=== PATIENT | female | born 1990 | race Asian ===

== ENCOUNTER 2024-10-25 11:59 | Inpatient (IN) | payer MEDICAID ==
[~2024-10-25] VITALS: Ht 167.6 cm; Wt 69.5 kg
--- NOTE | 2024-10-25 12:51 | Physician Documentation ---
History of Present Illness Chief Complaint: Nausea Stated Complaint: VOMITTING HPI Presents to the emergency department for complaints of nausea vomiting diarrhea times 2 days. She thinks that she has food poisoning. She reports that she has vomited and had diarrhea simultaneously accompanied by fever and cold chills. No cough or congestion at this time. No known sick contacts. Medication Reconciliation Allergies: Coded Allergies: No Known Allergies (Unverified , 10/25/24) Review of Systems ROS As stated above in the HPI, otherwise all systems are reviewed and negative. Physical Exam Vital Signs: Heart Rate: 95, Respiratory Rate: 14, BP: 121/67, Pulse Oximetry: 100, Weight: 68.900 Oxygen Flow Rate: 0 Physical Exam VITALS: Reviewed and as above. GENERAL: Alert, mild distress with vomiting HEENT: Normocephalic, atraumatic, PERRL, EOMI, dry mucosa, no erythema RESPIRATORY: Lungs clear, normal breath sounds, no respiratory distress. CHEST: No accessory muscle use, no retractions CV: Regular rate, rhythm, no edema, no murmur, No: JVD GI: Soft, non-tender,no rebound, guarding, or rigid BACK: No CVA tenderness, or swelling MUSCULOSKELETAL No deformities, no edema SKIN: Warm and dry, no rash NEURO: Oriented x4, No motor or sensory deficit PSYCH: Normal mood and affect, no agitation Progress Results/Orders Results/Orders Vital Signs 10/25/24 12:28 Pulse 95 Resp 14 B/P (MAP) 121/67 Pulse Ox 100 O2 Flow Rate 0 Medical Decision Making Findings This patient presents with nausea, vomiting & diarrhea. Differential diagnosis includes possible acute gastroenteritis. Abdominal exam without peritoneal signs. Currently euvolemic without evidence of dehydration. Doubt invasive bacteria causing diarrhea such as C diff (no recent antibiotics), shiga toxin (non bloody). No recent travel. Patient is not immunocompromised. Diarrhea is non bloody so less likely inflammatory bowel disease. No evidence of surgical abdomen or other acute medical emergency including bowel obstruction, viscus perforation, vascular catastrophe, atypical appendicitis, acute cholecystitis, UGIB, thyrotoxicosis, or diverticulitis at this time. Presentation not consistent with other acute, emergent causes of vomiting / diarrhea at this time. No indication for abdominal imagingAbdominal exam without peritoneal sign s. No evidence of acute abdomen at this time. . Presentation not consistent with other acute, emergent causes of abdominal pain at this time. Patient has a hx of alcoholism and esophagel bleeding. Adding on cardiac work-up. 1700:Diagnostic work up revealed a potassium of 2.2, mag of 1.3, anion gap of 28 and borderline abnormal EKG. 1730: Current plan is to repeat EKG, replete potassium with 40 meq of IV and 40 meq of oral potassium, replete magnesium with 2 grams and re-evaluate. A CT chest and troponin have been added on. 1745: consulted hospitalist for admission. We are waiting on results of HCG to get the CT. Hospitalist would like a call back back when all labs and imaging are back. Informed hospitalist that a cardiology consult may be needed due to c hanges in EKG. 18:07: Troponin - 62. Will repeat in 1 hour and update hospitalist. Differential Dx:Considerations: Include: AAA, -Complete, - Incomplete, -Inevitable, -Missed, -Threatened, Abruptio placentae, Angina/OK, Aortic dissection, Appendicitis, Bowel obstruction, Cholangitis, Cholelithasis, Constipation, Diverticular disease, Esophageal rupture, Esophagitis, Gastritis/PUD, Gastroenteritis, GI hemorrhage, Hernia, Hepatitis, Inflammatory BD, Ischemic bowel, Ovarian cyst/torsion, Pancreatitis, PID, Porphyria, Trauma, intraabdominal, Urinary obstruction, Urinary tract infection, Urolithiasis, Other Departure Disposition: ADMITTED INPATIENT Admitted to Inpatient Unit: yes, to hospitalist Admission Level of Care: Critcal Care Impression: Primary Impression: Hypokalemia Additional Impressions: Hypomagnesemia Gastritis Condition: Critical Referrals: NO PRIMARY CARE PROVIDER (PCP) Critical Care Note Total Time (mins): 60 Critical Care Note The very real possibility of a deterioration of this patient's condition required the highest level of my preparedness for sudden, emergent intervention. I provided critical care services, which included medication orders, frequent reevaluations of the patient's condition and response to treatment, ordering and reviewing test results, and discussing the case with various consultants. Excludes time spent performing separately billable procedures. The critical care time associated with the care of the patient was. Signature Scribe Signature: t Attestation: Scribed for Rossi Urbanp by Mumtaz An NP . 10/25/24 23:00 ROSSI URBAN Oct 25, 2024 12:51 MUMTAZ CURRIE SECTION[employer]T MOLD ASSEMBLER Oct 25, 2024 17:47
[2024-10-25 14:23] LABS: MEAN PLATELET VOLUME 8.1 FL (7.4-10.4); RED CELL DISTRIBUTION WIDTH 13.7 % (11.5-14.5)
[2024-10-25 14:37] LABS: CREATININE 0.93 MG/DL (0.40-0.90); TOTAL CARBON DIOXIDE 22.5 MMOL/L (24-32); eCRCL 78 ML/MIN; eGFR 68 ML/MIN
[2024-10-25] MEDS: ondansetron/PF 4mg/2ml inj IV ONE (15:13)
[2024-10-25] MEDS: normal saline 1000ML IV soln IVB ONE (15:13)
[2024-10-25 15:14] LABS: GIANT PLATELET FEW; PLATELET ESTIMATE NORMAL
--- NOTE | 2024-10-25 15:25 | ELECTROCARDIOGRAPH REPORT ---
[facility] Test Date: 2024-10-25 Test Time: 15:23:21 Pat Name: HODAN PFEIFFER Department: [facility]ER Patient ID: [id number] Room: [place] [address] Gender: F Hide And Skin Classer: : 1990 Requested By: TANNER URBAN Order Number: [id number] Reading MD: Dr. Boni Wills Measurements Intervals [place] Rate: 76 P: 53 OR: 130 QRS: 60 QRSD: 83 T: 63 QT: 551 QTc: 620 Interpretive Statements Sinus rhythm Paired ventricular premature complexes Consider left ventricular hypertrophy Repol abnrm suggests ischemia, diffuse leads Prolonged QT interval Electronically Signed On 10-27-2024 19:28:[address] Boni Wills Please click the below link to view image of tracing.
[2024-10-25] MEDS: Potassium Cl inj 40 MEQ in normal saline 500ml IV soln 500 ML IV ONE (15:36)
--- NOTE | 2024-10-25 16:29 | RADIOLOGY REPORT ---
CHEST RADIOGRAPH Indication: chest burning and esophageal discomfort, vomiting Technique: DI CHEST,TWO VIEWS Comparison: None FINDINGS: The cardiac silhouette is unremarkable. The lungs demonstrate no pulmonary airspace consolidation. Th e pulmonary vasculature is unremarkable. There is no pleural effusion. There is no pneumothorax. Old posterior left 8th rib fracture. IMPRESSION: No pulmonary airspace consolidation.
--- NOTE | 2024-10-25 16:58 | ELECTROCARDIOGRAPH REPORT ---
[facility] Test Date: 2024-10-25 Test Time: 16:56:38 Pat Name: HODAN PFEIFFER Department: [facility]- Patient ID: [id number] Room: [place] [address] Gender: F Student Admissions Clerk: : 1990 Requested By: TANNER URBAN Order Number: [id number] Reading MD: Dr. Boni Wills Measurements Intervals [place] Rate: 109 P: 70 [place]: 132 QRS: 62 QRSD: 85 T: 56 QT: 504 QTc: 680 Interpretive Statements Sinus tachycardia Paired ventricular premature complexes Probable left atrial enlargement Repol abnrm, severe global ischemia (LM/MVD) Electronically Signed On 10-27-2024 19:28:[address] Boni Wills Please click the below link to view image of tracing.
[2024-10-25] MEDS ORDERED: iohexol 300mg/ml 100ml inj. ONE ×2 (17:00→18:27)
[2024-10-25] MEDS: POTASSIUM CHLORIDE 20 MEQ/15 ML oral solution PO SCH (17:17)
[2024-10-25 18:00] LABS: HCG SERUM QL NEGATIVE
[2024-10-25] MEDS ORDERED: magnesium Cl slow-release 64mg tablet PO PRN (18:20)
[2024-10-25] MEDS ORDERED: magnesium sulf-water 4G/100mL 100 ML IV PRN (18:20)
[2024-10-25] MEDS ORDERED: potassium Cl 20 mEq SR tablet PO PRN (18:20)
[2024-10-25] MEDS: PERFLUTREN PROTEIN-A MICROSPHR (Optison) 0.22 MG/ML 3ML VIAL IV ONE (18:20)
[2024-10-25 18:31] LABS: URINE HCG NEGATIVE (NEG)
[2024-10-25 18:35] LABS: LEUKOCYTE ESTERASE ,URINE NEGATIVE (Neg); NITRITES, URINE NEGATIVE (Neg); OCCULT BLOOD,URINE NEGATIVE (Neg)
[2024-10-25 18:53] LABS: UA COLLECTION TYPE CLN CATCH MIDSTREAM
[2024-10-25 18:54] LABS: SQUAMOUS EPITHELIAL CELL,UR FEW /LPF (FEW)
[2024-10-25] MEDS: HEPARIN DRIP-CARDIAC**PHARMACIST-TO-DOSE IV ONE (19:00)
[2024-10-25] MEDS: magnesium sulf-water 2g/50mL 50 ML IV ONE ×2 (19:15→19:40)
[2024-10-25 19:16] LABS: ETHANOL < 10 MG/DL (<10); PRO BRAIN NATRIURETIC PEPTIDE 2230 PG/ML (0-125)
--- NOTE | 2024-10-25 19:18 | RADIOLOGY REPORT ---
CLINICAL HISTORY: chest pain, hx of esophageal bleeding TECHNIQUE: Chest CT was performed with 100 ml of omnipaque 300 administered intravenously. This exam was performed according to our departmental dose optimization program. Up-to-date CT equipment and ra diation dose reduction techniques are utilized as appropriate. WID: COMPARISON: DI CHEST,TWO VIEWS on DOS: 10/25/24 FINDINGS: Lower Neck: Hypodense right thyroid nodule measures 1.5 cm on series 2, image 4. Axilla, Mediastinum and Payton: No thoracic lymphadenopathy. Diffuse wall thickening of the esophagus. Heart and Great Vessels: Normal-sized heart without pericardial effusion. The thoracic aorta is casarez nt and normal caliber. Central pulmonary arteries are patent. There is moderate short segment calcifi ed plaque in the proximal left anterior descending coronary artery. Airway, Lungs and Pleura: Unremarkable. Upper Abdomen: Diffuse hepatic steatosis, moderate. Chest Wall and Osseous Structures: No destructive osseous lesion. There is a nonunited fracture of th e posterolateral left 8th rib. IMPRESSION: Diffuse wall thickening of the esophagus likely esophagitis. Short-segment moderate calcified plaque in the proximal left anterior descending coronary artery. Diffuse moderate hepatic steatosis.
[2024-10-25] MEDS ORDERED: heparin 10,000 units/1 ML INJ IV ONE (19:25)
[2024-10-25] MEDS ORDERED: heparin 25,000 UNIT/250ml bag 250 ML IV PRN (19:25)
--- NOTE | 2024-10-25 19:31 | HISTORY AND PHYSICAL-Residence ---
History & Physical Providers to Resident Creating Document: ALEE CONTRERAS, RES ~ History of Present Illness Primary Medical Doctor: none Reason for Admit\\Complaint: Hypokalemia History of Present Illness The patient is a 34-year-old female with past medical history of hypertension, palpitations, presented to the ED with complaints of recurrent vomiting, diarrhea since last three days. History is vague. The patient went swimming and had roommate three days ago after which he started vomiting and having diarrhea. She lost her appetite and could not keep any food down. He also complained of night sweats. She also complains of palpitations, tingling sensation in her bilateral fingertips, occasional chest pain. She also appeared anxious. But she does not take any medication for it. No complaint of abdominal pain, burning micturition, cough, difficulty breathing. History of alcohol use disorder. Hospital admission, underwent endoscopy and was found to have irritated stomach. She is on omeprazole. She was told that her "liver was not too bad". She has significantly cut her alcohol consumption down. Last drink was at the beginning of this month and was only a glass. Allergies: Coded Allergies: No Known Allergies (Unverified , 10/25/24) Past Medical History Past Medical History Hypertension, stopped taking lisinopril last month after she was told by her primary care physician Acid reflux, takes omeprazole Past Surgical History Surgical History Comment Hernia repair surgery when she was 4 years old Family history: History of CAD in both mother and father's side of family. Past Social History Social History Comment Patient lives in [place] with and 6 kids. Independent with ADLs. Follows up with primary care physician in [place]. Smokes about half pack of cigarettes every two days. Smokes marijuana. Denies any other illicit drug abuse. ROS ROS Reviewed and full. Negative except for pertinent positives in HPI. Exam Vitals: Vital Signs Date Time Temp Pulse Resp B/P (MAP) Pulse Ox O2 Delivery O2 Flow Rate FiO2 10/25/24 18:10 86 13 155/115 (128) 100 0 General: Adult female, alert and oriented, appears anxious Head: Normocephalic with an atraumatic Eyes: Pupils- 3mm, reacting to light, conjunctiva- anicteric Nose and throat: No polyps, septum- normal, no mucosal ulcers Neck: Supple, no lymphadenopathy, no carotid bruit Respiratory: No use of accessory muscles of respiration, Bilateral normal vesiscular breath sounds heard. No wheeze, rhochi or creps Cardiac: S1-S2 heard, rhythm regular, tachycardic, no gallop/murmur Abdomen: non distended, no tenderness, no organomegaly, bowel sounds - heard Extremities: no clubbing, no pedal edema, no deformities, peripheral pulses - 2+ Skin: warm and dry, no rash, no purpura Neuro: No focal deficit, gross cranial nerve exam - normal Diagnostic Data Last Recorded Lab Results: 10/25/24 1407 10/25/24 1407 Counseling Services Smoking & Tobacco Cessation: > 10 Minutes Advance Care Planning Advanced Care plannin - 30 Minutes Additional Plan A 34-year-old female with past medical history of hypertension, alcohol use disorder, acid reflux, presented to the ED with complaints of nausea, vomiting, diarrhea, palpitations. She is being admitted into the hospital for further evaluation and management. Plan: Palpitations Possible angina Possible NSTEMI vs type 2 VA Sinus tachycardia EKG shows ST depressions in leads two, three, AVF V3, V6, V5, V4. Troponins are mildly elevated 62, pending 2nd and 3rd troponins. Aspirin 325 mg p.o. Heparin drip IV ACS protocol. Metoprolol tartrate [address] King, functional analyst consulted. Awaiting recommendations. Elevated QTC 680. Discontinue Zofran and other QT prolonging medications. IV magnesium sulfate 4 g ordered. Magnesium 1.3. ProBNP 1999. Follow up with echocardiogram. Hypokalemia Likely secondary to GI losses Initiate potassium 2.2. Replace according to the protocol. Also replace magnesium. Continue telemetry monitoring. Possible gastroenteritis Continue IV fluids at 150 mL/hour ringer lactate. Stool ova and parasites. We will consider starting antibiotics tomorrow if symptoms persist. Hyperbilirubinemia Total bilirubin 3.2. Follow up with ultrasound abdomen. High anion gap metabolic acidosis Starvation ketoacidosis vs lactic acidosis Pending lactic acid. Urine ketones present. Continue IV fluids and monitor. Hypertension Continue metoprolol and lisinopril. Code Status: Full code DVT Prophylaxis: Heparin Lines/Tubes: PIV GI Prophylaxis: Protonix Nutrition: Heart healthy diet, NPO from midnight PT: Not required Prognosis: Guarded Disposition: Continue monitoring in PCU. Telemetry monitoring, heparin drip, magnesium replacement, potassium replacement, IV fluids. EKG in a.m. Alee Cotnreras MD Internal Medicine Resident PGY-1 Date of Service: Oct 25, 2024 Billing Provider: STACI SERRANO MD Common Visit Codes: [id number] INP/OBS CARE (HIGH) ALEE CONTRERAS, RES Oct 25, 2024 19:31 STACI SERRANO MD Oct 31, 2024 14:45
[2024-10-25 19:38] LABS: URINE AMPHETAMINE SCREEN NEGATIVE (Neg); URINE BARBITUATE SCREEN NEGATIVE (Neg); URINE BENZODIAZEPINES SCREEN POSITIVE (Neg); URINE CANNABINOID SCREEN POSITIVE (Neg); URINE COCAINE SCREEN NEGATIVE (Neg); URINE METHADONE SCREEN NEGATIVE (Neg); URINE OPIATE SCREEN NEGATIVE (Neg); URINE PHENCYCLIDINE SCREEN NEGATIVE (Neg)
[2024-10-25] MEDS: ringers solution, lacted 1,000 ML IV SCH (19:44)
[2024-10-25] MEDS ORDERED: metoclopramide 5 mg/ml inj IV PRN (19:55)
[2024-10-25] MEDS ORDERED: heparin, porcine 5000 units/ml vial SQ SCH (20:00)
[2024-10-25 20:01] LABS: INR 1.3 INR
[2024-10-25] MEDS: heparin 10,000 units/1 ML INJ IV ONE (20:09)
[2024-10-25] MEDS: heparin 25,000 UNIT/250ml bag 250 ML IV PRN (20:17)
[2024-10-25] MEDS: MESSAGE TO NURSING IV ONE (20:39)
[2024-10-25] MEDS: K and/or MAG REPLACEMENT MC SCH (20:41)
[2024-10-25] MEDS: pantoprazole 40mg Tablet.DR PO ONE (21:34)
[2024-10-25] MEDS: potassium Cl 40MEQ/1/2NS 520ml 520 ML IV PRN (22:42)
[2024-10-25] MEDS: magnesium sulf-water 2g/50mL 50 ML IV PRN (22:43)
[2024-10-25] MEDS ORDERED: MULT-1085 PO (23:13)
[2024-10-25] MEDS ORDERED: OMEP40CA21 PO (23:13)
[2024-10-25] MEDS ORDERED: VITA-268 PO (23:13)
[2024-10-25] MEDS ORDERED: VITD400T PO (23:13)
[2024-10-25] MEDS ORDERED: LISI20TA28 PO (23:13)
[2024-10-25 23:32] VITALS: BP 113/83; PULSE 81; RESP 20; TEMP 97; O2SAT 99
[2024-10-26] VITALS (13 sets, daily range): BP systolic 112–182; BP diastolic 66–118; PULSE 62–110; RESP 12–22; TEMP 97.2–98.2; O2SAT 94–100
[2024-10-26] MEDS ORDERED: LORA5TAB9 PO (02:10)
[2024-10-26 03:08] LABS: APTT 36 SECONDS (22-32)
[2024-10-26] MEDS: MESSAGE TO NURSING IV ONE (03:20)
[2024-10-26] MEDS: heparin 10,000 units/1 ML INJ IV PRN (03:24)
[2024-10-26 06:22] LABS: MEAN PLATELET VOLUME 8.5 FL (7.4-10.4); RED CELL DISTRIBUTION WIDTH 13.9 % (11.5-14.5)
[2024-10-26 06:36] LABS: CHOL/HDL RATIO 2.0 (0.00-4.99); CREATININE 0.79 MG/DL (0.40-0.90); LDL CHOLESTEROL 77 MG/DL (50-100); TOTAL CARBON DIOXIDE 24.5 MMOL/L (24-32); eCRCL 92 ML/MIN; eGFR 82 ML/MIN
--- NOTE | 2024-10-26 06:43 | ELECTROCARDIOGRAPH REPORT ---
[facility] Test Date: 2024-10-26 Test Time: 06:41:03 Pat Name: HODAN PFEIFFER Department: [facility] 3S Patient ID: [id number] Room: [place] [address] B Gender: F Bookkeeper: : 1990 Requested By: ELIO EASTON Order Number: [id number] Reading MD: Dr. MARY Duran Measurements Intervals [place] Rate: 73 P: 55 AL: 143 QRS: 58 QRSD: 88 T: 49 QT: 463 QTc: 511 Interpretive Statements Sinus rhythm Consider left ventricular hypertrophy Prolonged QT interval Electronically Signed On 10-26-2024 11:30:[address] MARY Duran Please click the below link to view image of tracing.
--- NOTE | 2024-10-26 07:56 | RADIOLOGY REPORT ---
INDICATION: elevated LFTs TECHNIQUE: Multiple real-time sonographic images of the abdomen were obtained. COMPARISON: None FINDINGS: The liver is homogenous in echogenicity. The liver measures 12.8 cm. No intrahepatic bilia ry ductal dilatation is noted. The gallbladder wall measures 0.3 cm and is unremarkable. No gallstones or sludge is seen. The com mon duct measures 0.3 cm and is unremarkable. No pericholecystic fluid is noted. Negative sonographi c terry's sign. The right kidney measures 10.9 cm. No hydronephrosis. The pancreas is not well visualized due to obscuration from bowel gas. The visualized portions of the IVC and aorta are grossly unremarkable. IMPRESSION: 1. Normal ultrasound of the right upper quadrant.
[2024-10-26] MEDS: potassium Cl 20 mEq SR tablet PO PRN (08:21)
[2024-10-26] MEDS: pantoprazole 40mg Tablet.DR PO SCH (08:22)
[2024-10-26] MEDS: aspirin 81mg, enteric-coated 1 TAB TABLET.DR PO SCH (08:22)
[2024-10-26] MEDS: heparin, porcine 5000 units/ml vial SQ SCH (08:23)
--- NOTE | 2024-10-26 11:40 | CARDIOLOGY REPORT ---
APPROVED REPORT EXAM: Comprehensive 2D, Doppler, and color-flow Echocardiogram. Patient Location: [facility] Blood Pressure: 116/80 mmHg Heart Rate: 89 bpm Indications Arrhythmia Troponin: 95, 99 NO CNP NO Previous ECHO 2D Dimensions LA Diam2.6 cm IVSd 1.0 (0.7-1.1cm) LVDd 4.2 cm PWd 1.1 (0.7-1.1cm) IVSs 1.2 (0.8-1.2cm) LVDs 2.9 (2.5-4.0cm) PWs 1.2 (0.8-1.2cm) LVOT Diameter 2.05 (1.8-2.4cm) LVEF(%) 57.9 (>50%) Ao Asc Diam.2.90 cm IVC 12.12 mmFS (%) 30.2 % SV 44.7 ml CO 3.8 L/min M-Mode Dimensions Left Atrium(MM) 3.25 (2.5-4.0cm) Aortic Root 3.25 (2.2-3.7cm) Aortic Cusp Exc 2.06 (1.5-2.0cm) MV EPSS 0.8 (<0.5cm) Aortic Valve AoV Peak Kip. 124.6 cm/s AoV VTI 21.9 cm AO Peak GR. 6.2 mmHg AO Mean GR. 4 mmHg LVOT VTI 16.21 cm LVOT Peak Kip. 86.1 cm/s WERNER(VTI)/BSA 2.45 cm2/m2 WERNER (VTI) 2.45 cm2 Mitral Valve MV E Velocity 78.3 cm/s MV Peak Gr. 2 mmHg MV DECEL TIME 184 ms MV A Velocity 68.6 cm/s MV PHT 64 ms E/A Ratio 1.1 MVA (PHT) 3.44 cm2 MV VMax78.0 cm/s TDI Lateral E' P. V11.48 cm/s E/Lateral E' 6.8 Tricuspid Valve TR P. Velocity 177 cm/s RAP ESTIMATE 10 mmHg TR Peak Gr. 13 mmHg RVSP 23 mmHg LEFT VENTRICLE Normal LV size and wall thickness. Overall systolic function is normal. overall LVEF is 60-65%. RIGHT VENTRICLE RV is normal size and function. ATRIA The left atrium size is normal. AORTIC VALVE Trileaflet AV appears mildly sclerotic without stenosis. Trivial insufficiency. MITRAL VALVE Mitral valve leaflets are thickened with mild annular calcification. No stenosis. Mild regurgitation. TRICUSPID VALVE The tricuspid valve is normal in structure with trace regurgitation. PULMONIC VALVE The pulmonary valve is normal in structure without insufficiency. GREAT VESSELS The aortic root is normal in size. The ascending aorta is normal in size. The IVC is normal in size a nd collapses >50% with inspiration. PERICARDIUM Normal pericardium. No effusion. Other Information Study Quality: Adequate Conclusion overall LVEF is 60-65%. Normal LV size and wall thickness. Overall systolic function is normal. RV is normal size and function. Trileaflet AV appears mildly sclerotic without stenosis. Trivial insufficiency. Mitral valve leaflets are thickened with mild annular calcification. No stenosis. Mild regurgitatio n. The tricuspid valve is normal in structure with trace regurgitation. The pulmonary valve is normal in structure without insufficiency. Normal pericardium. No effusion.
--- NOTE | 2024-10-26 12:11 | PROGRESS NOTE- Residence ---
Progress Note - Resident Providers to CC Resident Creating Document: ALEE CONTRERAS, RES ~ Antibiotic Timeout Antibiotic Ordered?: No Subjective The patient was seen and examined at bedside today. Her vomiting and diarrhea have resolved. She has heartburn, GERD symptoms. Troponins have been trending down. Objective Vital Signs Date Time Temp Pulse Resp B/P (MAP) Pulse Ox O2 Delivery O2 Flow Rate FiO2 10/26/24 10:26 97.7 92 18 119/83 (95) 99 Room Air 10/26/24 08:00 0.0 Result Diagram: 10/26/24 0556 10/26/24 0556 Adult female, alert and oriented, not in acute distress Head: Normocephalic with an atraumatic Eyes: Pupils- 3mm, reacting to light, conjunctiva- anicteric Nose and throat: No polyps, septum- normal, no mucosal ulcers Neck: Supple, no lymphadenopathy, no carotid bruit Respiratory: No use of accessory muscles of respiration, Bilateral normal vesicular breath sounds heard. No wheeze, rhochi or creps Cardiac: S1-S2 heard, rhythm regular, no gallop/murmur Abdomen: non distended, no tenderness, no organomegaly, bowel sounds - heard Extremities: no clubbing, no pedal edema, no deformities, peripheral pulses - 2+ Skin: warm and dry, no rash, no purpura Neuro: No focal deficit, gross cranial nerve exam - normal Coagulation Studies Laboratory Tests Test 10/25/24 19:36 10/26/24 02:50 Prothrombin Time 13.2 SECONDS (9.0-12.0) H INR International Normalized Ratio 1.3 INR D-Dimer 0.60 MG/L FEU (0-0.50) H D-Dimer Comment Activated Partial Thromboplast Time 36 SECONDS (22-32) H Coagulation Comments Counseling Services Smoking & Tobacco Cessation: > 10 Minutes Advance Care Planning Advanced Care plannin - 30 Minutes Assessment Assessment A 34-year-old female with past medical history of hypertension, alcohol use disorder, acid reflux, presented to the ED with complaints of nausea, vomiting, diarrhea, palpitations. She is being admitted into the hospital for further evaluation and management. Plan Plan Palpitations secondary to PVCs Type 2 RI EKG shows multiple PVCs likely secondary to hypokalemia. Dr. King made aware of the case. He thinks that the palpitations are likely from PVCs. Suggested to replace electrolytes. Troponins downtrending. Discontinued heparin drip and metoprolol. ProBNP 1999. Echocardiogram showed ejection fraction of 60-65%, no major structural abnormalities. Suspected PE Elevated troponins, sinus tachycardia, mildly elevated D-dimer 0.60. Follow up with CTA chest. Hypokalemia Hypomagnesemia Likely secondary to GI losses Potassium 3.0. Continue to replace according to the protocol. Magnesium 2.1. Continue telemetry monitoring. Possible gastroenteritis Continue IV fluids at 150 mL/hour ringer lactate. Stool ova and parasites. We will consider starting antibiotics tomorrow if symptoms persist. Hyperbilirubinemia, improving Total bilirubin trending down. Ultrasound abdomen within normal limits. High anion gap metabolic acidosis, resolved Likely starvation ketoacidosis Urine ketones present. Continue IV fluids and monitor. Hypertension Continue lisinopril 20 mg daily. GERD Esophagitis CT chest showed features suggestive of esophagitis. Continue Protonix 40 mg daily. Code Status: Full code DVT Prophylaxis: Heparin Lines/Tubes: PIV GI Prophylaxis: Protonix Nutrition: Heart healthy diet PT: Not required Prognosis: Guarded Disposition: Continue monitoring in PCU. Telemetry monitoring, potassium replacement, IV fluids. Alee Contreras MD Internal Medicine Resident PGY-2 Date of Service: Oct 26, 2024 Billing Provider: STACI SERRANO MD Common Visit Codes: [id number] INP/OBS CARE(HIGH) ALEE CONTRERAS, RES Oct 26, 2024 12:11 STACI SERRANO MD Oct 31, 2024 14:45
--- NOTE | 2024-10-26 12:25 | RADIOLOGY REPORT ---
CTA Chest with intravenous contrast INDICATION: elevated dimer, troponins, sinus tachycardia COMPARISON: CT CT CHEST W/ IV CONTRAST on DOS: 10/25/24, DI CHEST,TWO VIEWS on DOS: 10/25/24 TECHNIQUE: Multidetector spiral CTA of the chest was performed of the chest with intravenous contrast . PULMONARY ANGIOGRAPHY PROTOCOL was utilized using a bolus-tracking technique centered on the main p ulmonary artery. Axial, coronal and sagittal multiplanar and MIP reformats were performed. CONTRAST: Type of contrast: Omni 350 Contrast injected: 100 ml Radiation dose : Chest: CTDI volume is 12 mGy. Dose-length product is 497 mGy*cm The dose indicators for CT are the volume computed Tomography (CT) dose Index (CTDIvol) and the dose Length product (DLP), and are measured in units of mGy and mGy-cm, respectively. These indicators are not patient dose, but values generated from the CT scanner acquisition factors. The report includes radiation exposure data for exposures received during this examination. Findings: Pulmonary artery: No pulmonary embolism Lower neck: Normal thyroid. Lungs: No focal consolidation, pleural effusion or pneumothorax. Heart/Vascular Structures: Normal heart size. No pericardial effusion. Lymph Nodes: No adenopathy Pleura: No pleural effusion or significant pneumothorax. Musculoskeletal: Old left 8th rib fracture. Soft tissues: Normal. Upper abdomen: Diffuse hepatic steatosis with likely more focal fatty infiltration along the gallblad dawood fossa gianluca hepatis. Sludge in the gallbladder. IMPRESSION: 1. No pulmonary embolism. 2. No acute thoracic finding. 3. Diffuse hepatic steatosis with likely more focal fatty infiltration along the gallbladder fossa an d gianluca hepatis. This can be further evaluated with MRI of the abdomen with contrast. Sludge in the gallbladder. HS:Y
[2024-10-26] MEDS: ondansetron/PF 4mg/2ml inj IV PRN (13:37)
[2024-10-26] MEDS ORDERED: mag hydrox/Alum hydrox/simeth 30ml oral suspension PO PRN (17:45)
[2024-10-26] MEDS ORDERED: haloperidol lactate 5mg/ml inj IM PRN (17:55)
[2024-10-26] MEDS: calcium carbonate 500mg chew tablet PO ONE (21:06)
[2024-10-27 02:00] VITALS: BP 126/86; PULSE 113; RESP 23; TEMP 97.2; O2SAT 98
[2024-10-27 06:00] VITALS: BP 161/119; PULSE 63; RESP 16; TEMP 97.4; O2SAT 100
[2024-10-27 06:43] LABS: MEAN PLATELET VOLUME 8.2 FL (7.4-10.4); RED CELL DISTRIBUTION WIDTH 13.6 % (11.5-14.5)
[2024-10-27 07:05] LABS: CREATININE 0.64 MG/DL (0.40-0.90); TOTAL CARBON DIOXIDE 25.7 MMOL/L (24-32); eCRCL 114 ML/MIN; eGFR > 90 ML/MIN
[2024-10-27 07:44] LABS: EOSINOPHILS % (MANUAL) 2.0 % (0-6); LYMPHOCYTES % (MANUAL) 43.0 % (21-51); MONOCYTES % (MANUAL) 12.0 % (2-12); NEUTROPHILS % (MANUAL) 43.0 % (42-75)
[2024-10-27 07:45] LABS: PLATELET ESTIMATE NORMAL
[2024-10-27 08:00] VITALS: RESP 16; O2SAT 100
[2024-10-27] MEDS: mag hydrox/Alum hydrox/simeth 30ml oral suspension PO PRN (08:39)
[2024-10-27] MEDS ORDERED: thiamine tablet PO (10:11)
[2024-10-27] MEDS ORDERED: FOLI1TAB27 PO (10:11)
[2024-10-27] MEDS ORDERED: ONDA-243 PO (10:11)
[2024-10-27 11:00] VITALS: BP 127/92; PULSE 108; RESP 16; TEMP 97.3; O2SAT 98
[2024-10-27] MEDS ORDERED: AMLO5TAB16 PO (12:13)
--- NOTE | 2024-10-27 17:31 | DISCHARGE SUMMARY-Residence ---
Discharge Summary Providers to CC Resident Creating Document: ELIO EASTON, RES ~ Discharge Summary Admission Diagnosis: Hypokalemia, chest pain, dehydration Hospital Course DATE OF ADMISSION: 10/25/2024 DATE OF DISCHARGE: 10/27/2024 Imaging: X-ray chest 10/25/2024: No pulmonary airspace consolidation. CT chest 10/25/2024: Diffuse wall thickening of the esophagus likely esophagitis. Short-segment moderate calcified plaque in the proximal left anterior descending coronary artery. Diffuse moderate hepatic steatosis. Abdomen ultrasound 10/26/2024: Normal ultrasound. Echocardiogram 10/26/2024: Overall LVEF is 60-65%. Normal LV size and wall thickness. Overall systolic function is normal. RV is normal size and function. Trileaflet AV appears mildly sclerotic without stenosis. Trivial insufficiency. Mitral valve leaflets are thickened with mild annular calcification. No stenosis. Mild regurgitation. The tricuspid valve is normal in structure with trace regurgitation. The pulmonary valve is normal in structure without insufficiency. Normal pericardium. No effusion. CTA chest 10/26/2024: 1. No pulmonary embolism. 2. No acute thoracic finding. 3. Diffuse hepatic steatosis with likely more focal fatty infiltration along the gallbladder fossa and gianluca hepatis. This can be further evaluated with MRI of the abdomen with contrast. Sludge in the gallbladder. Discharge Diagnosis\\Comment: Palpitations secondary to PVCs Type 2 [place] Hypokalemia causing PVCs Hypomagnesemia Electrolyte abnormalities secondary to GI losses Possible gastroenteritis Hyperbilirubinemia, improving High anion gap metabolic acidosis, resolved - Likely starvation ketoacidosis Hypertension GERD Esophagitis Operations\\Procedures: None Consultants: Dr. King, rn dermatology Complications: None Condition on DC: Stable New Medications: Amlodipine Besylate (Amlodipine Besylate) 5 Mg Tablet 1 TAB PO DAILY for 30 Days, #30 TAB 0 Refills ONDANSETRON ODT 4mg tablet (Ondansetron Odt) 4 Mg Tab.rapdis 1 TAB PO Q6H PRN PRN for nausea/vomiting for 4 Days, #16 TAB 0 Refills Folic Acid* (Folic Acid*) Y Tab 1 MG PO DAILY for 30 Days, #30 TAB [thiamine tablet] () 100 MG TABLET 100 MG PO DAILY for 30 Days, #30 Continued Medications: Cholecalciferol (Vitamin D3) (Vitamin D) 10 Mcg (400 Unit) Tablet 1 TAB PO DAILY for 30 Days, #30 TAB 0 Refills Lisinopril (Lisinopril) 20 Mg Tablet 1 TAB PO DAILY for 30 Days, #30 TAB Loratadine (Claritin) 5 Mg Tab.rapdis 1 TAB PO PRN for 30 Days, #30 TAB 0 Refills Multivitamin (Multi Vitamin Daily) 1 Each Tablet 1 TAB PO DAILY for 30 Days, #30 TAB 0 Refills Omeprazole (Prilosec) 40 Mg Capsule 1 CAP PO DAILY for 30 Days, #30 CAP Vitamin B Complex (B Complex) 1 Each Tablet 1 TAB PO DAILY for 30 Days, #30 TAB 0 Refills Discharge Summary: History of present illness: The patient is a 34-year-old female with past medical history of hypertension, palpitations, presented to the ED with complaints of recurrent vomiting, diarrhea since last three days. History is vague. The patient went swimming and had roommate three days ago after which he started vomiting and having diarrhea. She lost her appetite and could not keep any food down. He also complained of night sweats. She also complains of palpitations, tingling sensation in her bilateral fingertips, occasional chest pain. She also appeared anxious. But she does not take any medication for it. No complaint of abdominal pain, burning micturition, cough, difficulty breathing. History of alcohol use disorder. Hospital admission, underwent endoscopy and was found to have irritated stomach. She is on omeprazole. She was told that her "liver was not too bad". She has significantly cut her alcohol consumption down. Last drink was at the beginning of this month and was only a glass. Course in the hospital: On evaluation in the ED, the patient seemed very anxious, complain of palpitations and had multiple PVCs on EKG. Troponins were mildly elevated and downtrending. On-call rn dermatology, Dr. King was consulted and he recommended replacing her electrolytes and monitoring. Her initial potassium was 2.2 and magnesium 1.3, which resolved with replacement protocol. She received 4 g of magnesium sulfate in total. Her vomiting and diarrhea have resolved. The next day, her EKG did not show any PVCs and the patient did not complain of any palpitations. She had occasional high blood pressures in the range of 180 systolic which was relieved with lorazepam. She was started on alcohol withdrawal protocol and she received thiamine and folic acid. She was extensively counseled on discontinuing alcohol and she complied with the recommendations. She also complained of severe gastritis symptoms and was recommended to follow up with a acid wash operator outpatient. On the day of discharge, the patient was stable and had no new complaints. She was eager to go home. Vital Signs Date Time Temp Pulse Resp B/P (MAP) Pulse Ox O2 Delivery O2 Flow Rate FiO2 10/27/24 11:00 97.3 108 16 127/92 (104) 98 Room Air 10/27/24 08:00 0.0 Laboratory Tests Test 10/25/24 17:37 10/25/24 17:42 10/25/24 19:36 10/25/24 20:26 Human Chorionic Gonadotropin, Qual Negative Urine Specimen Description Cln catch midstream Urine Color Dark yellow Urine Clarity Clear Urine pH 6.5 Urine Specific [place] 1.025 Urine Protein 100 mg/dl Urine Glucose (UA) Negative mg/dl Urine Ketones >=80 mg/dl Urine Occult Blood Negative Urine Nitrite Negative Urine Bilirubin Moderate Urine Urobilinogen 1.0 E.U/dL Urine Leukocyte Esterase Negative Urine RBC 0-2 /HPF Urine WBC 0-4 /HPF Urine Squamous Epithelial Cells Few /LPF Urine Transitional Epithelial Cells Few /HPF Urine Bacteria Few /HPF Urine Hyaline Casts 10-30 /LPF Urine Culture Indicated Not ind Volume Urine Centrifuged 10 ml Urine HCG, Qualitative Negative Urine Comment Urine Opiates Screen Negative Urine Methadone Screen Negative Urine Fentanyl Screen Negative Urine Barbiturates Screen Negative Urine Phencyclidine Screen Negative Urine Amphetamines Screen Negative Urine Benzodiazepines Screen Positive Urine Cocaine Screen Negative Urine Cannabinoids Screen Positive Drug Screen Comment Prothrombin Time 13.2 SECONDS INR International Normalized Ratio 1.3 INR D-Dimer 0.60 MG/L FEU D-Dimer Comment Coagulation Comments Lactic Acid Level 1.5 MMOL/L Troponin I High Sensitivity 95 ng/L 99 ng/L Troponin I High Sens Percent Delta 53 % 4 % Troponin I Hi Sens Absolute Change 33 ng/L 4 ng/L Test 10/26/24 02:50 10/26/24 05:56 10/26/24 15:40 10/26/24 18:31 Activated Partial Thromboplast Time 36 SECONDS Coagulation Comments White Blood Count 7.0 X10'3 Red Blood Count 3.83 X10'6 Hemoglobin 12.7 g/dl Hematocrit 37.4 % Mean Corpuscular Volume 97.8 FL Mean Corpuscular Hemoglobin 33.2 PG Mean Corpuscular Hemoglobin Concent 33.9 g/dL Red Cell Distribution Width 13.9 % Platelet Count 182 X10'3 Mean Platelet Volume 8.5 FL Neutrophils (%) (Auto) 69.5 % Lymphocytes (%) (Auto) 16.1 % Monocytes (%) (Auto) 13.8 % Eosinophils (%) (Auto) 0.1 % Basophils (%) (Auto) 0.5 % Neutrophils # (Auto) 4.9 X10'3 Lymphocytes # (Auto) 1.1 X10'3 Monocytes # (Auto) 1.0 X10'3 Eosinophils # (Auto) 0.0 X10'3 Basophils # (Auto) 0.0 X10'3 CBC Comment Sodium Level 135 MMOL/L Potassium Level 3.0 MMOL/L 3.5 MMOL/L Chloride Level 100 MMOL/L Carbon Dioxide Level 24.5 MMOL/L Anion Gap 11 Blood Urea Nitrogen 3 MG/DL Creatinine 0.79 MG/DL Estimated GFR/1.73 m2 82 ML/MIN BUN/Creatinine Ratio 3.8 Glucose Level 142 MG/DL Calcium Level 8.3 MG/DL Magnesium Level 2.1 MG/DL Total Bilirubin 2.6 MG/DL Aspartate Amino Transf (AST/SGOT) 42 U/L Alanine Aminotransferase (ALT/SGPT) 23 U/L Alkaline Phosphatase 62 IU/L Troponin I High Sensitivity 87 ng/L Total Protein 7.0 G/DL Albumin 3.8 G/DL Globulin 3.2 G/DL Albumin/Globulin Ratio 1.2 Triglycerides Level 94 MG/DL Cholesterol Level 189 MG/DL LDL Cholesterol 77 MG/DL HDL Cholesterol 94 MG/DL Cholesterol/HDL Ratio 2.0 Chemistry Comments Glucometer 113 mg/dl Test 10/26/24 21:06 10/27/24 06:24 10/27/24 06:50 Glucometer 109 mg/dl 117 mg/dl White Blood Count 3.8 X10'3 Red Blood Count 3.37 X10'6 Hemoglobin 11.4 g/dl Hematocrit 32.8 % Mean Corpuscular Volume 97.2 FL Mean Corpuscular Hemoglobin 33.7 PG Mean Corpuscular Hemoglobin Concent 34.7 g/dL Red Cell Distribution Width 13.6 % Platelet Count 163 X10'3 Mean Platelet Volume 8.2 FL Neutrophils (%) (Auto) 49.2 % Lymphocytes (%) (Auto) 33.0 % Monocytes (%) (Auto) 16.0 % Eosinophils (%) (Auto) 1.4 % Basophils (%) (Auto) 0.4 % Neutrophils # (Auto) 1.9 X10'3 Lymphocytes # (Auto) 1.2 X10'3 Monocytes # (Auto) 0.6 X10'3 Eosinophils # (Auto) 0.1 X10'3 Basophils # (Auto) 0.0 X10'3 CBC Comment Differential Total Cells Counted 100 Neutrophils % (Manual) 43.0 % Lymphocytes % (Manual) 43.0 % Monocytes % (Manual) 12.0 % Eosinophils % (Manual) 2.0 % Smudge Cells 1+ Platelet Estimate Normal Red Blood Cell Morphology Perf Basophilic Stippling Macrocytosis 1+ Stomatocytes 1+ Sodium Level 136 MMOL/L Potassium Level 3.6 MMOL/L Chloride Level 101 MMOL/L Carbon Dioxide Level 25.7 MMOL/L Anion Gap 9 Blood Urea Nitrogen 3 MG/DL Creatinine 0.64 MG/DL Estimated GFR/1.73 m2 > 90 ML/MIN BUN/Creatinine Ratio 4.7 Glucose Level 109 MG/DL Calcium Level 8.6 MG/DL Magnesium Level 1.5 MG/DL Total Bilirubin 1.5 MG/DL Aspartate Amino Transf (AST/SGOT) 40 U/L Alanine Aminotransferase (ALT/SGPT) 20 U/L Alkaline Phosphatase 50 IU/L Total Protein 6.1 G/DL Albumin 3.3 G/DL Globulin 2.8 G/DL Albumin/Globulin Ratio 1.2 Chemistry Comments *Problems/Diagnosis: (1) Hypokalemia Status: Acute (2) Hypomagnesemia Status: Acute (3) Gastritis Status: Acute Total Time Spent on D/C: > 30 Minutes Counseling Services Smoking & Tobacco Cessation: > 10 Minutes Date of Service: Oct 27, 2024 Billing Provider: STACI SERRANO MD Common Visit Codes: 93732-OUH/OBS DISCH DAY >30min RUSTAMELIODerek GARCIA, RES Oct 27, 2024 17:24 STACI SERRANO MD Oct 31, 2024 14:46
== END 2024-10-27 12:42 | disposition home or self-care (01) | DRG 243 ==
LOC: ER 12:00 → ED HOLD 18:31 → PCU 3S 23:38
PROVIDERS: ADMIT Family Medicine; ATTEND Family Medicine
PROC: BW241ZZ Computerized Tomography (CT Scan) of Chest and Abdomen using Low Osmolar Contrast (ICD-10-PCS; principal; 2024-10-25)
PROC: B32T1ZZ Computerized Tomography (CT Scan) of Left Pulmonary Artery using Low Osmolar Contrast (ICD-10-PCS; 2024-10-26)
PROC: B3201ZZ Computerized Tomography (CT Scan) of Thoracic Aorta using Low Osmolar Contrast (ICD-10-PCS; 2024-10-26)
PROC: B32S1ZZ Computerized Tomography (CT Scan) of Right Pulmonary Artery using Low Osmolar Contrast (ICD-10-PCS; 2024-10-26)
DX: K21.00 Gastro-esophageal reflux disease with esophagitis, without bleeding (principal); I21.A1 Myocardial infarction type 2; E87.29 Other acidosis; K52.9 Noninfective gastroenteritis and colitis, unspecified; I49.3 Ventricular premature depolarization; E87.6 Hypokalemia; E83.42 Hypomagnesemia; T73.0XXA Starvation, initial encounter; X58.XXXA Exposure to other specified factors, initial encounter; E80.6 Other disorders of bilirubin metabolism; I10 Essential (primary) hypertension
CPT/HCPCS: 36415; 71046; 71260; 71275; 76700; 80053; 80061; 80305; 80320; 81001; 81025; 82948; 83036; 83605; 83690; 83735; 83880; 84132; 84145; 84443; 84484; 84703; 85007; 85008; 85025; 85379; 85610; 85730; 87081; 93005; 93306; 96365; 96375; 99291; G0378; J1200; J1644; J2405; J3480; J7030; J7040; J7120; Q9967

== ENCOUNTER 2025-01-28 22:12 | Emergency (ER) | payer MEDICAID ==
[~2025-01-28] VITALS: Ht 167.6 cm; Wt 76.1 kg
[~2025-01-28 22:12] MED LIST: AMLO5TAB16 PO; FOLI1TAB27 PO; LISI20TA28 PO; LORA5TAB9 PO; MULT-1085 PO; OMEP40CA21 PO; ONDA-243 PO; VITA-268 PO; VITD400T PO; thiamine tablet PO
[2025-01-28] MEDS: oxymetazoline 15 ML nasal spray NS ONE (22:42)
[2025-01-28] MEDS: ondansetron 4mg rapidly disintigrating tab PO ONE (22:52)
--- NOTE | 2025-01-28 23:06 | Physician Documentation ---
History of Present Illness ~ Chief Complaint: Nose bleed Stated Complaint: NOSE BLEED/ NO BLOOD THINNERS Time Seen by MD: 22:44 Primary Medical Doctor: none HPI 35-year-old female presenting with a nosebleed She tells me that she blew her nose this morning and started having bleeding from the right side. Eventually it stopped. However during the day she had recurrent nosebleeds several times. She denies any history of regular nosebleeds. Denies any other associated symptoms. She is not on blood thinners. Medication Reconciliation Allergies: Coded Allergies: No Known Allergies (Unverified , 10/25/24) Scheduled Amlodipine Besylate (Amlodipine Besylate), 1 TAB PO DAILY Cholecalciferol (Vitamin D3) (Vitamin D), 1 TAB PO DAILY, (Reported) Folic Acid* (Folic Acid*), 1 MG PO DAILY Lisinopril (Lisinopril), 1 TAB PO DAILY, (Reported) Loratadine (Claritin), 1 TAB PO PRN Multivitamin (Multi Vitamin Daily), 1 TAB PO DAILY, (Reported) Omeprazole (Prilosec), 1 CAP PO DAILY, (Reported) Vitamin B Complex (B Complex), 1 TAB PO DAILY, (Reported) [thiamine tablet], 100 MG PO DAILY Scheduled PRN ONDANSETRON ODT 4mg tablet (Ondansetron Odt), 1 TAB PO Q6H PRN PRN for nausea/vomiting Past Medical History Patient History: FH: breast cancer MOTHER FH: lung cancer GRANDFATHER OR GRANDMOTHER, , Age: 60 years and older FH: type 1 diabetes GRANDFATHER OR GRANDMOTHER, , Age: 60 years and older FH: type 2 diabetes FATHER Vertigo FATHER Review of Systems ENT: Reports: nose bleeding Physical Exam Vital Signs: Temperature: 98.1, Heart Rate: 99, Respiratory Rate: 16, BP: 148/107, Pulse Oximetry: 99, Weight: 76.140 Oxygen Flow Rate: 0 Physical Exam General: This is a pleasant and overall healthy-appearing young female HEENT: Atraumatic, oropharynx is moist. She does have bleeding from the right nare, no bleeding from the left naris. Later on exam, she does have some mild inflammatory changes around the right Kiesselbach plexus Heart: Regular rate and rhythm, normal-appearing peripheral perfusion Lungs: normal work of breathing, normal oxygen saturation on room air Neuro: Alert and oriented Psychiatric: Calm and cooperative with exam Progress Results/Orders Results/Orders Completed Orders - BRYCE MARTINEZ MD Oxymetazoline Nasal [place] (Afrin Nasal S (01/28/25 22:40) Ondansetron Disint. Tablet (Zofran Odt T (01/28/25 22:45) Bacitracin Ointment (Bacitracin Ointment (01/28/25 23:45) Medications Received in ER Medications (Trade) Dose Ordered Sig/Toño Route PRN Reason Start Time Stop Time Status Last Admin Dose Admin (Afrin nasal spray) 2 spr ONCE ONCE NS 01/28/25 22:40 01/28/25 22:41 DC 01/28/25 22:42 2 SPR (Zofran ODT tablet) 4 mg ONCE ONCE PO 01/28/25 22:45 01/28/25 22:46 DC 01/28/25 22:52 4 MG Vital Signs 01/28/25 01/28/25 22:13 23:49 Temp 98.1 98.6 Pulse 99 89 Resp 16 16 B/P (MAP) 148/107 144/99 Pulse Ox 99 99 O2 Flow Rate 0 Medical Decision Making Additional information obtaine: family Findings Family reports that she does not have a history of nosebleeds Ear Diff. Dx: Considerations: Unlikely: Otitis media Eye Diff. Dx: Considerations: Unlikely: Foreign body-corneal Nose Diff. Dx: Considerations: Include: Anterior nasal bleed, Posterior nasal bleed Tooth Diff. Dx: Considerations: Unlikely: Periodontal abscess Throat Diff Dx: Considerations: Unlikely: Herpes simplex Additional Comment The patient presents with a recurrent nosebleed throughout the day. She was tr eated with Afrin and a nasal clamp, after which the bleeding stopped. On exam this appears to be an anterior nosebleed. I did offer to attempt cautery, but the patient declined. She will be discharged home with Afrin and a nasal clamp. Return precautions given. Departure Time of Disposition: 23:39 Disposition: 01 HOME / SELF CARE / HOMELESS Impression: Primary Impression: Epistaxis Condition: Improved Discharge Instructions: Nosebleed, Adult Referrals: NO PRIMARY CARE PROVIDER (PCP) Education Educated: Patient, Family Educated regarding: diagnosis, treatment, need for follow up Signature Scribe Signature: na Attestation: BRYCE Sinha MD Jan 28, 2025 23:06
[2025-01-28 23:49] VITALS: BP 144/99; PULSE 89; RESP 16; TEMP 98.6; O2SAT 99
[2025-01-28] MEDS: bacitracin 15gm ointment TP ONE (23:49)
== END 2025-01-28 23:50 | disposition home or self-care (01) ==
LOC: ER 22:12
DX: R04.0 Epistaxis (principal); Z79.899 Other long term (current) drug therapy
CPT/HCPCS: 99283